=== PATIENT | female | born 1945 | race Caucasian/White ===

== ENCOUNTER 2017-03-28 13:26 | Emergency (ER) | payer OTHER ==
[~2017-03-28] VITALS: Ht 170.2 cm; Wt 75.0 kg
[2017-03-28] MEDS ORDERED: PERCOCET 5/31 TABLET PO (15:33)
[2017-03-28 16:06] VITALS: BP 167/85
== END 2017-03-28 16:07 | disposition home or self-care (01) ==
LOC: EME 13:26
PROC: 2W3LX1Z Immobilization of Right Lower Extremity using Splint (ICD-10-PCS; principal; 2017-03-28)
DX: S82.424A Nondisplaced transverse fracture of shaft of right fibula, initial encounter for closed fracture (principal); S82.54XA Nondisplaced fracture of medial malleolus of right tibia, initial encounter for closed fracture; W17.89XA Other fall from one level to another, initial encounter; Y92.830 Public park as the place of occurrence of the external cause; Y99.2 Volunteer activity; I10 Essential (primary) hypertension
CPT/HCPCS: 73590; 73610; 99281; 99283